=== PATIENT | female | born 1980 | race Two or more races ===

== ENCOUNTER 2023-04-08 16:56 | Emergency (ER) | payer MEDICAID ==
[~2023-04-08] VITALS: Ht 160 cm; Wt 84.6 kg
[~2023-04-08 16:56] MED LIST: PANT40TA54 PO
[2023-04-08 17:06] VITALS: BP 126/78; PULSE 85; RESP 14; TEMP 98.6; O2SAT 99
[2023-04-08 17:57] LABS: BILIRUBIN,URINE NEGATIVE (Neg); CLARITY,URINE SLIGHTLY CLOUDY (Clear); COLOR,URINE YELLOW (Yellow); GLUCOSE, URINE NEGATIVE (Neg); KETONES,URINE NEGATIVE (Neg); LEUKOCYTE ESTERASE ,URINE NEGATIVE (Neg); NITRITES, URINE NEGATIVE (Neg); OCCULT BLOOD,URINE NEGATIVE (Neg); PROTEIN,URINE NEGATIVE (Neg); UROBILINOGEN,URINE 0.2 E.U/dL (0.2-1.0)
[2023-04-08 17:58] LABS: URINE HCG NEGATIVE (NEG)
[2023-04-08 17:58] LABS: BASOPHILS % (AUTO) 0.4 % (0-1); EOSINOPHILS # (AUTO) 0.1 X10'3 (0-0.9); EOSINOPHILS % (AUTO) 1.2 % (0-6); HEMATOCRIT 41.6 % (35.0-45.0); HEMOGLOBIN 13.5 g/dl (12.0-16.0); LYMPHOCYTES # (AUTO) 2.7 X10'3 (1.1-4.8); LYMPHOCYTES % (AUTO) 22.5 % (21-51); MEAN CORPUSCULAR HEMOGLOBIN 26.4 PG (27.0-31.0); MEAN CORPUSCULAR HGB CONC 32.4 g/dL (33.0-36.5); MEAN CORPUSCULAR VOLUME 81.2 FL (78-98); MEAN PLATELET VOLUME 8.9 FL (7.4-10.4); MONOCYTES # (AUTO) 0.7 X10'3 (0-0.9); MONOCYTES % (AUTO) 5.8 % (2-12); NEUTROPHILS # (AUTO) 8.6 X10'3 (1.8-7.7); NEUTROPHILS % (AUTO) 70.1 % (42-75); PLATELET COUNT 364 X10'3 (140-440); RED BLOOD COUNT 5.12 X10'6 (4.20-5.60); RED CELL DISTRIBUTION WIDTH 15.1 % (11.5-14.5); WHITE BLOOD COUNT 12.2 X10'3 (4.5-11.0)
[2023-04-08 18:00] LABS: UA COLLECTION TYPE CLN CATCH MIDSTREAM
[2023-04-08 18:08] LABS: BACTERIA,URINE 1+ /HPF (Neg); MUCUS STRANDS FEW /LPF (Neg); RBC,URINE NONE SEEN /HPF (0-2); SQUAMOUS EPITHELIAL CELL,UR MODERATE /LPF (FEW); WBC,URINE 0-4 /HPF (0-4)
[2023-04-08 18:15] LABS: ALANINE AMINOTRANSFERASE 40 U/L (12-78); ALBUMIN 3.8 G/DL (3.4-5.0); ALBUMIN/GLOBULIN RATIO 0.8 (1.1-1.5); ALKALINE PHOSPHATASE 97 IU/L (46-116); ANION GAP 11 (8-16); ASPARTATE AMINO TRANSFERASE 19 U/L (10-37); BILIRUBIN,TOTAL 0.7 MG/DL (0.1-1.0); BLOOD UREA NITROGEN 19 MG/DL (7-18); BUN/CREATININE RATIO 27.9 (10.0-20.0); CALCIUM 9.1 MG/DL (8.5-10.1); CHLORIDE 101 MMOL/L (99-107); CREATININE 0.68 MG/DL (0.40-0.90); GLUCOSE 103 MG/DL (70-104); LIPASE 71 U/L (73-393); POTASSIUM 3.2 MMOL/L (3.5-5.1); SODIUM 138 MMOL/L (135-145); TOTAL CARBON DIOXIDE 25.6 MMOL/L (24-32); TOTAL PROTEIN 8.5 G/DL (6.4-8.2); eCRCL 87 ML/MIN; eGFR > 90 ML/MIN
[2023-04-09] MEDS ORDERED: LORazepam 1 MG tablet PO ONE (00:30)
[2023-04-09] MEDS ORDERED: ondansetron 4mg rapidly disintigrating tab PO ONE (00:30)
[2023-04-09] MEDS ORDERED: meclizine 12.5mg tablet PO ONE (00:30)
[2023-04-09] MEDS ORDERED: potassium Cl 20 mEq SR tablet PO STA (00:43)
[2023-04-09] MEDS ORDERED: MECL-159 PO ×2 (01:09→01:16)
[2023-04-09] MEDS ORDERED: LORA-269 PO ×2 (01:09→01:16)
[2023-04-09] MEDS ORDERED: ONDA4TAB12 PO ×2 (01:09→01:16)
== END 2023-04-09 01:35 | disposition home or self-care (01) ==
LOC: ER 16:56
DX: R42 Dizziness and giddiness (principal); R11.2 Nausea with vomiting, unspecified; R51.9 Headache, unspecified; Z98.891 History of uterine scar from previous surgery
CPT/HCPCS: 36415; 80053; 81001; 81025; 83690; 85025; 99284; J8597

== ENCOUNTER 2024-10-23 03:09 | Emergency (ER) | payer MEDICAID ==
[~2024-10-23] VITALS: Ht 167.6 cm; Wt 78.5 kg
[~2024-10-23 03:09] MED LIST changes: +LORA-269 PO; +MECL-302 PO; +ONDA-243 PO
[2024-10-23] MEDS ORDERED: pantoprazole 40mg Tablet.DR PO SCH (03:50)
[2024-10-23] MEDS: LIDOcaine 2% Viscous 15ml cup MM ONE (04:06)
[2024-10-23] MEDS: pantoprazole 40mg Tablet.DR PO ONE (04:06)
[2024-10-23] MEDS: mag hydrox/Alum hydrox/simeth 30ml oral suspension PO ONE (04:06)
[2024-10-23 04:35] LABS: BASOPHILS # (AUTO) 0.1 X10'3 (0-0.2); BASOPHILS % (AUTO) 0.6 % (0-1); BILIRUBIN,URINE NEGATIVE (Neg); CLARITY,URINE CLOUDY (Clear); COLOR,URINE YELLOW (Yellow); EOSINOPHILS # (AUTO) 0.2 X10'3 (0-0.9); EOSINOPHILS % (AUTO) 2.4 % (0-6); GLUCOSE, URINE NEGATIVE (Neg); HEMATOCRIT 34.4 % (35.0-45.0); HEMOGLOBIN 10.9 g/dl (12.0-16.0); KETONES,URINE NEGATIVE (Neg); LEUKOCYTE ESTERASE ,URINE NEGATIVE (Neg); LYMPHOCYTES # (AUTO) 2.8 X10'3 (1.1-4.8); LYMPHOCYTES % (AUTO) 28.3 % (21-51); MEAN CORPUSCULAR HEMOGLOBIN 23.2 PG (27.0-31.0); MEAN CORPUSCULAR HGB CONC 31.9 g/dL (33.0-36.5); MEAN CORPUSCULAR VOLUME 72.8 FL (78-98); MEAN PLATELET VOLUME 8.3 FL (7.4-10.4); MONOCYTES # (AUTO) 0.5 X10'3 (0-0.9); MONOCYTES % (AUTO) 5.2 % (2-12); NEUTROPHILS # (AUTO) 6.4 X10'3 (1.8-7.7); NEUTROPHILS % (AUTO) 63.5 % (42-75); NITRITES, URINE NEGATIVE (Neg); OCCULT BLOOD,URINE SMALL (Neg); PH,URINE 5.5 (4.8-8.0); PLATELET COUNT 360 X10'3 (140-440); PROTEIN,URINE NEGATIVE (Neg); RED BLOOD COUNT 4.73 X10'6 (4.20-5.60); RED CELL DISTRIBUTION WIDTH 18.1 % (11.5-14.5); UROBILINOGEN,URINE 0.2 E.U/dL (0.2-1.0); WHITE BLOOD COUNT 10.1 X10'3 (4.5-11.0)
[2024-10-23 04:37] LABS: URINE HCG NEGATIVE (NEG)
[2024-10-23 04:40] LABS: UA COLLECTION TYPE CLN CATCH MIDSTREAM
[2024-10-23 04:41] LABS: BACTERIA,URINE 4+ /HPF (Neg); RBC,URINE 0-2 /HPF (0-2); SQUAMOUS EPITHELIAL CELL,UR MANY /LPF (FEW)
[2024-10-23 04:49] LABS: ALANINE AMINOTRANSFERASE 24 U/L (12-78); ALBUMIN 3.4 G/DL (3.4-5.0); ALBUMIN/GLOBULIN RATIO 0.7 (1.1-1.5); ALKALINE PHOSPHATASE 113 IU/L (46-116); ANION GAP 8 (8-16); ASPARTATE AMINO TRANSFERASE 16 U/L (10-37); BILIRUBIN,TOTAL 0.3 MG/DL (0.1-1.0); BLOOD UREA NITROGEN 15 MG/DL (7-18); BUN/CREATININE RATIO 27.3 (10.0-20.0); CALCIUM 8.6 MG/DL (8.5-10.1); CHLORIDE 106 MMOL/L (99-107); CREATININE 0.55 MG/DL (0.40-0.90); GLUCOSE 126 MG/DL (70-104); LIPASE 30 U/L (16-77); POTASSIUM 4.1 MMOL/L (3.5-5.1); SODIUM 138 MMOL/L (135-145); TOTAL CARBON DIOXIDE 24.1 MMOL/L (24-32); TOTAL PROTEIN 8.1 G/DL (6.4-8.2); eCRCL 120 ML/MIN; eGFR > 90 ML/MIN
[2024-10-23] MEDS ORDERED: PANT20TA18 PO (05:12)
[2024-10-23 05:29] VITALS: BP 140/80; PULSE 87; RESP 16; TEMP 96.8; O2SAT 100
[2024-10-24] MEDS ORDERED: METF-436 PO (21:38)
[2024-10-28] MEDS ORDERED: AMOX-580 PO (11:40)
[2024-10-28] MEDS ORDERED: ONDA-243 PO (11:40)
[2024-10-28] MEDS ORDERED: HYDR-3964 PO (11:40)
== END 2024-10-23 05:41 | disposition home or self-care (01) ==
LOC: ER 03:10
DX: R10.13 Epigastric pain (principal); R11.10 Vomiting, unspecified; Z98.890 Other specified postprocedural states; Z79.899 Other long term (current) drug therapy
CPT/HCPCS: 36415; 80053; 81001; 81025; 83690; 85025; 99284

== ENCOUNTER 2025-07-17 09:03 | Emergency (ER) | payer MEDICAID ==
[~2025-07-17] VITALS: Ht 167.6 cm; Wt 92.4 kg
[~2025-07-17 09:03] MED LIST changes: +AMOX-580 PO; +HYDR-3964 PO; -LORA-269 PO; -MECL-302 PO; +METF-436 PO; -PANT40TA54 PO
--- NOTE | 2025-07-17 09:23 | ELECTROCARDIOGRAPH REPORT ---
[facility] Test Date: 2025-07-17 Test Time: 09:22:45 Pat Name: MITCH GONZALEZ Department: [facility]- Patient ID: [id number] Room: Gender: F Underwriting Account Representative: : 1980 Requested By: JANELLE SMITH Order Number: [id number] Reading MD: Dr. SHYAM Le Measurements Intervals [place] Rate: 67 P: 23 MA: 114 QRS: 55 QRSD: 93 T: 23 QT: 385 QTc: 407 Interpretive Statements Sinus rhythm Borderline short MA interval Electronically Signed On 07-18-2025 19:21:[address] SHYAM Le Please click the below link to view image of tracing.
[2025-07-17 09:38] LABS: MEAN PLATELET VOLUME 8.5 FL (7.4-10.4); RED CELL DISTRIBUTION WIDTH 17.5 % (11.5-14.5)
[2025-07-17 09:41] LABS: LEUKOCYTE ESTERASE ,URINE NEGATIVE (Neg); NITRITES, URINE NEGATIVE (Neg); OCCULT BLOOD,URINE TRACE-INTACT (Neg)
--- NOTE | 2025-07-17 09:41 | RADIOLOGY REPORT ---
CLINICAL HISTORY: CP TECHNIQUE: Single view of the chest was obtained. COMPARISON: DI CHEST,SINGLE VIEW on DOS: 10/24/24 FINDINGS: The heart size and pulmonary vasculature are normal. The lungs are clear. IMPRESSION: NO ACUTE CARDIOPULMONARY PROCESS.
[2025-07-17 09:42] LABS: URINE HCG NEGATIVE (NEG)
[2025-07-17 09:48] LABS: UA COLLECTION TYPE CLN CATCH MIDSTREAM
[2025-07-17 09:49] LABS: MUCUS STRANDS FEW /LPF (Neg); SQUAMOUS EPITHELIAL CELL,UR FEW /LPF (FEW)
[2025-07-17 09:53] LABS: CREATININE 0.70 MG/DL (0.40-0.90); TOTAL CARBON DIOXIDE 25.3 MMOL/L (24-32); eCRCL 93 ML/MIN; eGFR 90 ML/MIN
--- NOTE | 2025-07-17 11:24 | Physician Documentation ---
History of Present Illness Chief Complaint: Abdominal Pain w/vomiting Stated Complaint: ABD PAIN Time Seen by MD: 11:02 OK to notify your PCP?: Yes Primary Medical Doctor: none Source: patient Mode of Arrival: POV Exam Limitations: no limitations HPI 45-year-old female who is here with epigastric abdominal pain that started at 6:00 a.m. this morning. Pain started immediately upon waking up. She states about 3 hours after the pain started she then experienced nausea with an episode of vomiting. She did not eat any breakfast this morning but states she drank a green tea. She reports the tea did not make her nauseated or increase her abdominal pain. The nausea occurred about an hour after she drank the green tea. Patient states she had a normal bowel movement at around 8:00 a.m. this morning. Brown in color. No blood in her stool. She has been told that she is anemic and was treated with iron replacement but she stopped taking this. She was also prescribed pantoprazole but states she does not take this regularly and has not taken recently. She has never had an upper endoscopy or colonoscopy. She reports that her epigastric pain has since improved dramatically on his own since she has been waiting to be seen in the ER. No pre arrival treatment. She reports initially upon waking up her pain was around an 8/10 in severity and states now her pain is around a two to 3/10 in severity. Pain is not related to exertion. No aggravating or alleviating factors that she has identified. Medication Reconciliation Allergies: Coded Allergies: No Known Allergies (Unverified , 10/23/24) Scheduled Amox Tr/Potassium Clavulanate 875/125 MG (Augmentin 875/125 MG), 1 TAB PO BID Metformin Hcl (Metformin Hcl), 1 TAB PO DAILY, (Reported) Scheduled PRN Hydrocodone Bit/Acetaminophen (Hydrocodon-Acetaminophen 5-325), 1 TAB PO Q4H PRN for severe pain (7-10) ONDANSETRON ODT 4mg tablet (Ondansetron Odt), 1 TAB PO Q6H PRN for nausea/vomiting Past Medical History Past Medical History: No Pertinent History Past Surgical History: Drug Use: none Lives In: Home Review of Systems All Other Systems at this time: Reviewed and Negative Physical Exam Vital Signs: Temperature: 97.7, Heart Rate: 84, Respiratory Rate: 15, BP: 122/78, Pulse Oximetry: 98, Weight: 92.400 Oxygen Flow Rate: 0 Physical Exam GENERAL: Alert, no acute distress. HEENT: NCAT, EOMI, PERRL, normal oropharynx, moist oral mucosa. NECK: Supple, trachea midline. CARDIAC: Regular rate and rhythm, no murmurs, rubs, or gallops. Equal distal pulses. No lower extremity edema, cap refill less than 2 seconds. RESPIRATORY: Equal breath sounds, clear to auscultation bilaterally, no respiratory distress. GASTROINTESTINAL: Non distended, soft, EPIGASTRIC TTP, No guarding or rebound. MUSCULOSKELETAL: Normal range of motion, nontender, no swelling. Normal gait. NEUROLOGICAL: Awake, alert, and oriented x 3. SKIN: Warm/dry, no pallor, no rash. PSYCH: Alert and appropriate. Affect congruent with mood. Speech is clear. Good eye contact. Progress Results/Orders Results/Orders Orders - HAO LOZANO Sucralfate Tablet (Carafate Tablet) (07/17/25 11:20) Pantoprazole Tablet (Protonix) (07/17/25 11:16) Mag & Alum Hydrox/Simeth Susp (Maalox Or (07/17/25 11:16) Lidocaine 2% Viscous (Xylocaine 2% Visco (07/17/25 11:16) Vital Signs 07/17/25 09:08 Temp 97.7 Pulse 84 Resp 15 B/P (MAP) 122/78 Pulse Ox 98 O2 Flow Rate 0 Laboratory Tests Test 07/17/25 09:32 White Blood Count 7.1 Red Blood Count 4.79 Hemoglobin 10.8 L Hematocrit 33.9 L Mean Corpuscular Volume 70.8 L Mean Corpuscular Hemoglobin 22.5 L Mean Corpuscular Hemoglobin Concent 31.8 L Red Cell Distribution Width 17.5 H Platelet Count 341 Mean Platelet Volume 8.5 Neutrophils (%) (Auto) 48.0 Lymphocytes (%) (Auto) 42.0 Monocytes (%) (Auto) 7.2 Eosinophils (%) (Auto) 2.2 Basophils (%) (Auto) 0.6 Neutrophils # (Auto) 3.4 Lymphocytes # (Auto) 3.0 Monocytes # (Auto) 0.5 Eosinophils # (Auto) 0.2 Basophils # (Auto) 0.0 CBC Comment Urine Specimen Description Cln catch midstream Urine Color Yellow Urine Clarity Clear Urine pH 6.0 Urine Specific [place] 1.025 Urine Protein Negative Urine Glucose (UA) Negative Urine Ketones Negative Urine Occult Blood Trace-intact Urine Nitrite Negative Urine Bilirubin Negative Urine Urobilinogen 0.2 Urine Leukocyte Esterase Negative Urine RBC 0-2 Urine WBC 0-4 Urine Squamous Epithelial Cells Few Urine Bacteria None seen Urine Mucus Few Urine Culture Indicated Not ind Volume Urine Centrifuged 10 ml Urine HCG, Qualitative Negative Urine Comment Sodium Level 140 Potassium Level 3.7 Chloride Level 106 Carbon Dioxide Level 25.3 Anion Gap 9 Blood Urea Nitrogen 13 Creatinine 0.70 Estimated GFR/1.73 m2 90 BUN/Creatinine Ratio 18.6 Glucose Level 112 H Calcium Level 8.2 L Total Bilirubin 0.3 Aspartate Amino Transf (AST/SGOT) 26 Alanine Aminotransferase (ALT/SGPT) 33 Alkaline Phosphatase 129 H Troponin I High Sensitivity < 4 L Troponin I High Sens Percent Delta Troponin I Hi Sens Absolute Change Total Protein 8.2 Albumin 3.5 Globulin 4.7 H Albumin/Globulin Ratio 0.7 L Lipase 32 Chemistry Comments Medical Decision Making Additional information obtaine: N/A Findings N/A Differential Dx:Considerations: AAA, Angina/HI, Aortic dissection, Appendicitis, Bowel obstruction, Cholangitis, Cholelithasis, Constipation, Diverticular disease, Esophageal rupture, Esophagitis, Gastritis/PUD, Gastroenteritis, GI hemorrhage, Hernia, Hepatitis, Inflammatory BD, Ischemic bowel, Ovarian cyst/torsion, Pancreatitis, Trauma, intraabdominal, Urinary obstruction, Urinary tract infection, Urolithiasis Departure Time of Disposition: 11:21 Disposition: 01 HOME / SELF CARE / HOMELESS Impression: Primary Impression: Epigastric abdominal pain Additional Impression: Microcytic anemia Condition: Stable Discharge Instructions: Abdominal Pain, Adult, [id number] Additional Instructions: YOUR EPIGASTRIC ABDOMINAL PAIN IS VERY CONCERNING GIVEN YOUR MICROCYTIC ANEMIA. YOU NEED TO FOLLOW UP WITH YOUR PRIMARY CARE PROVIDER ABOUT THIS. YOU ALSO ARE DUE FOR A ROUTINE SCREENING COLONOSCOPY THIS IS RECOMMENDED AT AGE 43 SO YOU WERE TWO YEARS OVERDUE. I WOULD ALSO RECOMMEND YOU GET AN UPPER ENDOSCOPY DUE TO YOUR EPIGASTRIC PAIN AND TO EVALUATE FOR STOMACH CAUSES THAT CAN CAUSE PAIN AND ANEMIA. YOU NEED TO HAVE A REPEAT LAB DONE IN A FEW WEEKS TO FOLLOW UP ON THE ANEMIA IF YOUR HEMOGLOBIN IS LOWER THAN YOUR BASELINE. THIS WOULD NEED TO BE DETERMINED BY YOUR PRIMARY CARE PROVIDER. WE DID NOT FEEL IT WAS NECESSARY TO ADMIT YOU TO THE HOSPITAL TODAY GIVEN THE FACT THAT YOU ARE NOT HAVING ANY BLOOD IN YOUR STOOL OR BLOOD IN YOUR VOMIT IN YOU ARE NOT HAVING ANY LIGHTHEADEDNESS OR SYMPTOMS OF ANEMIA. YOU ALSO REPORT THE ANEMIA IS NOT NEW YOU HAVE BEEN TOLD YOU ARE ANEMIC PREVIOUSLY. ALSO YOUR EPIGASTRIC PAIN SEEMS TO HAVE IMPROVED ON IT'S OWN SINCE ARRIVAL TO THE ER. YOUR CARDIAC LABS WHERE NEGATIVE. Referrals: NO PRIMARY CARE PROVIDER (PCP) Prescriptions Sucralfate (Carafate) 1 Gram Tablet 1 TAB PO Q6H for 30 Days, #120 TAB 0 Refills Prov: HAO LOZANO 07/17/25 Pantoprazole Sodium (PROTONIX tablet) 40 Mg Tablet.dr 1 TAB PO DAILY for 30 Days, #30 TAB 0 Refills Prov: HAO LOZANO 07/17/25 Education Educated: Patient, Other (PATIENT'S SON) Educated regarding: diagnosis, treatment, need for follow up Signature Scribe Signature: X Attestation: HAO CHURCHILL Jul 17, 2025 11:24
[2025-07-17] MEDS ORDERED: SUCR1TAB34 PO (11:25)
[2025-07-17] MEDS ORDERED: PANT-47 PO (11:25)
[2025-07-17 11:40] VITALS: TEMP 97.7
[2025-07-17] MEDS: mag hydrox/Alum hydrox/simeth 30ml oral suspension PO STA (11:46)
[2025-07-17] MEDS: LIDOcaine 2% Viscous 15ml cup MM STA (11:46)
[2025-07-17] MEDS: pantoprazole 40mg Tablet.DR PO STA (11:47)
[2025-07-17 11:51] VITALS: BP 131/73; PULSE 71; RESP 16; O2SAT 100
== END 2025-07-17 11:56 | disposition home or self-care (01) ==
LOC: ER 09:03
DX: R10.13 Epigastric pain (principal); R11.2 Nausea with vomiting, unspecified; D50.9 Iron deficiency anemia, unspecified; Z79.84 Long term (current) use of oral hypoglycemic drugs; Z98.890 Other specified postprocedural states
CPT/HCPCS: 36415; 71045; 80053; 81001; 81025; 83690; 84484; 85025; 93005; 99285